=== PATIENT | female | born 1950 | race Caucasian/White ===

== ENCOUNTER 2016-04-04 11:42 | Emergency (ER) | payer SELFPAY | END 2016-04-04 22:56 | disposition home or self-care (01) | LOC: ER 11:42 | DX: S82.435A Nondisplaced oblique fracture of shaft of left fibula, initial encounter for closed fracture (principal); S70.02XA Contusion of left hip, initial encounter; W18.2XXA Fall in (into) shower or empty bathtub, initial encounter; Y92.002 Bathroom of unspecified non-institutional (private) residence as the place of occurrence of the external cause; I10 Essential (primary) hypertension; Z86.73 Personal history of transient ischemic attack (TIA), and cerebral infarction without residual deficits; Z79.01 Long term (current) use of anticoagulants; Z79.899 Other long term (current) drug therapy; Z98.61 Coronary angioplasty status | CPT/HCPCS: 36415; 70450; 74176; 80053; 85025; 85610; 85730 ==